=== PATIENT | female | born 1960 | race Caucasian/White ===

== ENCOUNTER 2020-03-12 13:49 | Emergency (ER) | payer MEDICARE, BC ==
--- NOTE | 2020-03-12 14:59 | ER Document Report ---
ED Medical Screen (RME) - General Stated Complaint: WEAKNESS Time Seen by Provider: 03/12/20 14:45 Mode of Arrival: Wheelchair Information source: Patient Notes: Patient presents 2 days after having lap band removal surgery at [facility]. Patient states after waking up from the anesthesia she has had heaviness to bilateral upper and lower extremities. Patient states that she is able to get up and ambulate although it takes a lot of effort and she has a shuffling gait. Patient called her surgeon and they advised her to come here to be evaluated for possible DVT. Patient denies any chest pain or shortness of breath. Patient does complain of headache pain. I have greeted and performed a rapid initial assessment of this patient. A comprehensive ED assessment and evaluation of the patient, analysis of test results and completion of the medical decision making process will be conducted by additional ED providers. Physical Exam - Vital signs Vitals: Temp Pulse Resp BP Pulse Ox 98.8 F 100 16 133/89 H 98 03/12/20 14:10 03/12/20 14:10 03/12/20 14:10 03/12/20 14:10 03/12/20 14:10 - General General appearance: Alert In distress: None Notes: Mild tenderness to bilateral upper and lower extremities, no overt edema, bruising around surgical sites to abdomen Course - Vital Signs Vital signs: Temp Pulse Resp BP Pulse Ox 98.8 F 100 16 133/89 H 98 03/12/20 14:10 03/12/20 14:10 03/12/20 14:10 03/12/20 14:10 03/12/20 14:10
[2020-03-12 15:59] LABS: APPEARANCE,URINE CLOUDY; BILIRUBIN,URINE NEGATIVE (NEGATIVE); COLOR,URINE YELLOW; GLUCOSE, URINE NEGATIVE (NEGATIVE); KETONES,URINE NEGATIVE (NEGATIVE); LEUKOCYTE ESTERASE,URINE NEGATIVE (NEGATIVE); NITRITE,URINE NEGATIVE (NEGATIVE); PROTEIN,URINE NEGATIVE (NEGATIVE); URINE SPECIFIC GRAVITY 1.014; UROBILINOGEN,URINE NEGATIVE mg/dL (<2.0)
[2020-03-12 16:50] LABS: ABSOLUTE LYMPHOCYTES (AUTO) 1.7 10^3/uL (0.5-4.7); ABSOLUTE MONOCYTES (AUTO) 0.6 10^3/uL (0.1-1.4); HEMOGLOBIN 13.6 g/dL (12.0-15.5); TOTAL CELLS COUNTED % (AUTO) 100 %
[2020-03-12 16:54] LABS: ABSOLUTE EOSINOPHILS # (AUTO) 0.2 10^3/uL (0.0-0.6); ABSOLUTE NEUT (AUTO) 5.1 10^3/uL (1.7-8.2); BASOPHILS % (AUTO) 0.5 % (0-2); HEMATOCRIT 38.6 % (36.0-47.0); MEAN CORPUSCULAR HGB CONC 35.2 g/dL (32.0-36.0); MEAN CORPUSCULAR VOLUME 88 fl (80-97); MONOCYTES % (AUTO) 7.4 % (3-13); PLATELET COUNT 235 10^3/uL (150-450); RED BLOOD COUNT 4.38 10^6/uL (3.72-5.28); SEGMENTED NEUTROPHILS % (AUTO) 67.1 % (42-78); WHITE BLOOD COUNT 7.7 10^3/uL (4.0-10.5)
--- NOTE | 2020-03-12 17:25 | RADIOLOGY REPORT (SQ) ---
EXAM DESCRIPTION: VENOUS BILATERAL LOWER IMAGES COMPLETED DATE/TIME: 03/12/2020 5:11 pm REASON FOR STUDY: bilat LE pain, weakness COMPARISON: None. TECHNIQUE: Dynamic and static michael scale and color images acquired of both lower extremity venous sy stems. Selected spectral images acquired with additional compression and augmentation maneuvers. Imag es stored on PACS. LIMITATIONS: None. FINDINGS: RIGHT LEG COMMON FEMORAL AND FEMORAL: Normal phasicity, compression and augmentation. No visualized echogenic m aterial on michael scale. No defects on color images. POPLITEAL: Normal compression and augmentation. No visualized echogenic material on michael scale. No de fects on color images. CALF VESSELS: Normal compression and augmentation. No visualized echogenic material on michael scale. No defects on color image. GSV AND SSV: Normal compression. No visualized echogenic material on micheal scale. No defects on color images. ANY DEEP VENOUS INSUFFICIENCY: Not evaluated. ANY EVIDENCE OF POPLITEAL CYST: No. OTHER: No other significant finding. LEFT LEG COMMON FEMORAL AND FEMORAL: Normal phasicity, compression and augmentation. No visualized echogenic m aterial on michael scale. No defects on color images. POPLITEAL: Normal compression and augmentation. No visualized echogenic material on michael scale. No de fects on color images. CALF VESSELS: Normal compression and augmentation. No visualized echogenic material on michael scale. No defects on color images. GSV AND SSV: Normal compression. No visualized echogenic material on michael scale. No defects on color images. ANY DEEP VENOUS INSUFFICIENCY: Not evaluated. ANY EVIDENCE POPLITEAL CYST: No. OTHER: No other significant finding. IMPRESSION: NO EVIDENCE DVT OR SVT IN EITHER LEG. TECHNICAL DOCUMENTATION: JOB ID: [id number] [id number] 2010 [employer]- All Rights Reserved Reading location - IP/workstation name: [email or web address]
[2020-03-12 18:19] LABS: ALBUMIN 3.9 g/dL (3.5-5.0); ALKALINE PHOSPHATASE 79 U/L (38-126); ANION GAP 11 (5-19); ASPARTATE AMINO TRANSFERASE 28 U/L (14-36); BILIRUBIN,DIRECT 0.4 mg/dL (0.0-0.4); BILIRUBIN,TOTAL 1.2 mg/dL (0.2-1.3); BLOOD UREA NITROGEN 17 mg/dL (7-20); CALCIUM 9.3 mg/dL (8.4-10.2); CARBON DIOXIDE 29 mmol/L (22-30); CHLORIDE 95 mmol/L (98-107); CREATINE KINASE 44 U/L (30-135); GLUCOSE 190 mg/dL (75-110); NEONATAL BILIRUBIN RESULT 0.8 mg/dL (0.1-1.1); POTASSIUM 3.3 mmol/L (3.6-5.0); TOTAL PROTEIN 6.4 g/dL (6.3-8.2)
[2020-03-12] MEDS ORDERED: HYDROMORPHONE HCL INJ/PF 2 MG/ML AMPULE IM ONE (20:50)
--- NOTE | 2020-03-12 20:53 | ER Document Report ---
ED General - General Chief Complaint: Pain All Over Stated Complaint: WEAKNESS Time Seen by Provider: 03/12/20 14:45 Mode of Arrival: Wheelchair - HPI Context: This is a 59-year-old female with a history of morbid obesity, hypertension, cholesterol, diabetes mellitus and prior lap band surgery presenting to the emergency department complaining of diffuse body aches, especially in her legs. Patient states this is been going on for approximately 2 days. Patient had surgery under general anesthesia 3 days ago to remove her lap band. Surgery itself took approximately 15 minutes according to the patient. Patient states that she stopped at her house to "feed the animals" after her surgery before she got back in the car and went with her family down to [place] to be cared for after surgery. Patient states that the pain is aching at times and sharp at other times, she localizes the pain to all of her body but states that the very worst pain is in both of her legs bilaterally. Patient describes the pain as a 5 on a scale of 0-5. Patient states movement or exertion of any sort worsens p ain and even taking her oxycodone that she has been prescribed does not seem to help the pain at all. Patient states that she still has some oxycodone tablets left for pain. Patient states that she called her surgeon's office this morning and told him what symptoms she was having. The surgeon told the patient to go to her closest emergency department to be evaluated and to definitely have a murali ateral lower extremity Doppler done to check for the possibility of DVTs. Associated symptoms: None Exacerbated by: Other - See HPI Relieved by: Other - See HPI Similar symptoms previously: No Recently seen / treated by doctor: Yes - Related Data Allergies/Adverse Reactions: No Known Allergies Allergy (Unverified 03/12/20 18:31) Home Medications: triamtarine- hydrochlorothiazide, atorvastatin, metformin, brio, Past Medical History - General Information source: Patient - Social History Smoking Status: Former Smoker Chew tobacco use (# tins/day): No Frequency of alcohol use: None Drug Abuse: None Family History: Reviewed & Not Pertinent Patient has suicidal ideation: No Patient has homicidal ideation: No - Past Medical History Cardiac Medical History: Reports: Hx Hypercholesterolemia, Hx Hypertension Endocrine Medical History: Reports: Hx Diabetes Mellitus Type 2 Past Surgical History: Reports: Hx Abdominal Surgery - lap band reversal, Hx Section, Hx Gynecologic Surgery - d&c, Hx Orthopedic Surgery - knee Review of Systems - Review of Systems Constitutional: Weakness EENT: No symptoms reported Cardiovascular: No symptoms reported Respiratory: No symptoms reported Gastrointestinal: No symptoms reported Genitourinary: No symptoms reported Female Genitourinary: No symptoms reported Musculoskeletal: Other - Myalgias Skin: No symptoms reported Hematologic/Lymphatic: No symptoms reported Neurological/Psychological: Weakness. denies: Sensory change, Seizure -: Yes All other systems reviewed and negative Physical Exam - Vital signs Vitals: Temp Pulse Resp BP Pulse Ox 98.8 F 100 16 133/89 H 98 03/12/20 14:10 03/12/20 14:10 03/12/20 14:10 03/12/20 14:10 03/12/20 14:10 - Notes Notes: CONSTITUTIONAL [Vital signs reviewed, Patient appears to be in no acute distress, Alert and oriented X 3, patient is morbidly obese.] HEAD [Atraumatic, Normocephalic.] EYES [Eyes are normal to inspection, No discharge from eyes, Extraocular muscles intact, Sclera are normal, Conjunctiva are normal.] NECK [Normal ROM, No jugular venous distention, No meningeal signs, no carotid bruit.] RESPIRATORY CHEST [Chest is nontender, Breath sounds normal, No respiratory distress.] CARDIOVASCULAR [RRR, No murmurs, Normal S1 S2, No rub, No gallop.] ABDOMEN [Abdomen is nontender, No pulsatile masses, No other masses, Bowel sounds normal, No distension, No peritoneal signs, No hernias. Patient has 5 laparoscopic incisions present on her abdomen. All incision sites have a mild amount of ecchymosis surrounding them. There is no evidence of dehiscence or drainage.] BACK [There is no CVA Tenderness, There is no tenderness to palpation, Normal inspection.] UPPER EXTREMITY [Inspection normal, No cyanosis, No clubbing, No edema, 2+ radial pulses.] LOWER EXTREMITY [Inspection normal, No cyanosis, No clubbing, No edema, No calf tenderness, 2+ femoral pulses.] NEURO [No focal motor deficits, No focal sensory deficits, Speech normal.] SKIN [Skin is warm, Skin is dry, Skin is normal color. Skin exam is unremarkable other than what is mentioned above in the abdomen section] LYMPHATIC [No adenopathy in neck.] PSYCHIATRIC [Normal affect. ] Course - Re-evaluation Re-evalutation: 03/12/20 21:04 Results of ED MSE discussed with patient. Consult with patient's surgeon, Dr. Garber at [facility] also discussed with patient. All questions were answered prior to discharge. Emergency signs and symptoms, reasons to return to the emergency department discussed with patient. - Vital Signs Vital signs: Temp Pulse Resp BP Pulse Ox 98.8 F 100 16 133/89 H 98 03/12/20 18:31 03/12/20 14:10 03/12/20 14:10 03/12/20 14:10 03/12/20 14:10 - Laboratory Result Diagrams: 03/12/20 16:05 03/12/20 16:05 Laboratory results interpreted by me: 03/12/20 16:05 Sodium 135.3 L Potassium 3.3 L Chloride 95 L Glucose 190 H - Diagnostic Test Radiology reviewed: Reports reviewed - Consults Dr. Forest Garber, surgeon, [facility] Time consulted: 20:49 - Dr. Garber stated that given the ultrasounds were completed and found to be negative for DVT, no further work-up needs to be done at this time. He stated the patient was on the OR table no longer than an hour. He does not feel that rhabdomyolysis is likely. Dr. Zhao agrees with plan to discharge patient home and to follow-up as an outpatient. Reason for consultation: 03/12/20 21:06 Discussed finding of DVT studies consult in terms of whether any additional work-up needs to be done at this time Discharge - Discharge Clinical Impression: Generalized pain Condition: Stable Disposition: HOME, SELF-CARE Additional Instructions: Return to the Emergency Department without delay if any worse. Activity as tolerated. Avoid strenuous activity or heavy lifting. Use oxycodone as prescribed for pain. Follow up with Dr. Garber as scheduled. HOME CARE INSTRUCTIONS & INFORMATION: Thank you for choosing us for your medical needs. We hope you're satisfied with the care you received. After you leave, you must properly care for your problem and, at the same time, observe its progress. Any condition can change. Some illnesses can change rapidly over hours or days. If your condition worsens, return to the Emergency Department or see your physician promptly. ABOUT YOUR X-RAYS AND EKG'S: If you had an EKG or X-rays taken, they have been read by the Emergency Physician. The X-rays and EKG's will also be read by a Radiologist or Marketing Services Rep within 24 hours. If discrepancies are noted, you will be notified by telephone. Please be certain the ED has a correct telephone number & address where you can be reached. Also, realize that some fractures or abnormalities do not show up on initial X-rays. If your symptoms continue, see your physician. ABOUT YOUR LABORATORY TEST: If you had laboratory tests, the results have been reviewed by the Emergency Physician. Some test results (for example cultures) may not be available for several days. You will be contacted if any test result shows you need additional treatment. Please be certain the ED has a correct telephone number and address where you can be reached. ABOUT YOUR MEDICATIONS: You will receive instructions on how to take your medicine on the prescription label you receive. Additional information may be provided by the Pharmacy. If you have questions afterwards, call the ED for clarification or further instructions. Some prescribed medications may cause drowsiness. Do not perform tasks such as driving a car or operating machinery without consulting your Pharmacist. If you feel you need a refill of pain medication, your condition will need re-evaluation. Please do not call for a refill of any medication. ABOUT YOUR SIGNATURE: Signature of this document acknowledges to followin. Understanding that you received emergency treatment and that you may be released before al medical problems are known or treated. Please be certain the ED has a correct phone number & address where you can be reached. 2. Acknowledgement that you will arrange for follow-up care as recommended. 3. Authorization for the Emergency Physician to provide information to your follow-up Physician in order to maximize your care. AT ANY TIME, IF YOUR SYMPTOMS CHANGE SIGNIFICANTLY OR WORSEN OR YOU DEVELOP NEW SYMPTOMS, RETURN TO THE EMERGENCY DEPARTMENT IMMEDIATELY FOR RE-EVALUATION. OUR GOAL IS TO PROVIDE EXCELLENT MEDICAL CARE! WE HOPE THAT WE HAVE MET YOUR EXPECTATIONS DURING YOUR EMERGENCY DEPARTMENT VISIT AND THAT YOU FEEL YOU HAVE RECEIVED EXCELLENT CARE!
[2020-03-12 21:46] VITALS: BP 120/77
== END 2020-03-12 21:46 | disposition home or self-care (01) ==
LOC: ER 13:49
DX: M79.10 Myalgia, unspecified site (principal); R53.1 Weakness; E66.9 Obesity, unspecified; I10 Essential (primary) hypertension; E78.00 Pure hypercholesterolemia, unspecified; E11.9 Type 2 diabetes mellitus without complications; Z79.84 Long term (current) use of oral hypoglycemic drugs
CPT/HCPCS: 99284; 96372; 36415; 82550; 83735; 85025; 80053; 81001; 93970; J1170